=== PATIENT | female | born 1945 | race Caucasian/White ===

== ENCOUNTER 2019-03-08 18:07 | Observation (INO) ==
[2019-03-08] MEDS ORDERED: DILTIAZEM HCL 5 MG/ML VIAL IV ONE (18:21)
--- NOTE | 2019-03-08 18:28 | ERNOTE ---
Dizziness ER Record Date of Service: 03/08/19 Presenting Symptoms: weakness Time Seen by Provider: 03/08/19 18:20 Source: patient Exam Limitations: no limitations Immunizations: IMMUNIZATION HX Immunizations Up to Date Yes Allergies/Adverse Reactions: Allergies Allergy/AdvReac Type Severity Reaction Status Date / Time simvastatin [From Zocor] Allergy Intermediate vomitting Verified 03/08/19 18:16 cefaclor [From Ceclor] Allergy Mild RASH Verified 03/08/19 18:16 gemfibrozil [From Lopid] AdvReac Mild Diarrhea Verified 03/08/19 18:16 Home Medications: HOME MEDICATIONS Aspirin [Aspirin Enteric Coated] 325 mg PO DAILY 01/20/18 [Last Taken Unknown] Biotin 5 mg PO DAILY 01/20/18 [Last Taken Unknown] Calcium Carbonate/Vitamin D3 [Calcium 600-Vit D3 400 Tablet] 1 ea PO DAILY 01/20/18 [Last Taken Unknown] ascorbic acid (vitamin C) 500 mg capsule 500 mg PO DAILY cap 04/19/18 [Last Taken Unknown] garlic 500 mg capsule 500 mg PO DAILY 04/19/18 [Last Taken Unknown] glucosamine-chondroitin 250 mg-200 mg tablet 1 tab PO DAILY tab 04/19/18 [Last Taken Unknown] vitamin E (dl, acetate) 400 unit capsule 400 unit PO DAILY 04/19/18 [Last Taken Unknown] metformin 850 mg tablet 850 mg PO BIDWM #60 tab 10/03/18 [Last Taken Unknown] cimetidine 200 mg tablet 200 mg PO BID tab 10/07/18 [Last Taken Unknown] clonidine HCl 0.2 mg tablet 0.2 mg PO DAILY #30 tab 11/11/18 [Last Taken Unknown] glipizide ER 10 mg tablet, extended release 24 hr 10 mg PO BID #60 tab 11/11/18 [Last Taken Unknown] blood sugar diagnostic strips See Dose Instructions .ROUTE .MEDSUPPLY #100 ea 11/28/18 [Last Taken Unknown] metoprolol succinate ER 50 mg tablet,extended release 24 hr 50 mg PO DAILY #30 tab 11/28/18 [Last Taken Unknown] quinapril 40 mg tablet 40 mg PO DAILY #90 tab 12/21/18 [Last Taken Unknown] simvastatin 20 mg tablet 20 mg PO HS #90 tab 12/21/18 [Last Taken Unknown] sucralfate 1 gram tablet 1 g PO Q6H #120 tab 01/02/19 [Last Taken Unknown] - History of Present Illness Narrative: patient presents to the ED for feeling weak, high BP and heart rate. She had recent bypass surgery. She denies acute CP or SOB. No fever. Today she was feeling increasingly weak and noted high BP and elevated heart rate. She has a history of A Fib by report but she is not sure if she is in it all the time or not. 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 Heart rate 135 when I am in the room. Timing and Duration: still present Severity: currently: moderate Associated Symptoms: Present: weakness, none - no focal weakness, generalized weakness noted.. Absent: vomiting Modifying Factors - (Improves): Reports: nothing Modifying Factors - (Worsens): Reports: nothing Prior Treament: Reports: recently seen. Denies: currently on antibiotics Review of Systems - Review of Systems Constitutional: Absent: fever EYE: Present: no symptoms reported ENT: Absent: sore throat Respiratory: Absent: shortness of breath Cardiology: Absent: chest pain Gastrointestinal/Abdominal: Absent: abdominal pain Genitourinary: Absent: dysuria Neurological: Absent: headache All Other Systems: All systems neg except as marked Medical History (Updated 03/08/19 @ 18:28 by Manfred Díaz MD) Diabetes mellitus type 2 in nonobese Onset Date: Unknown Hyperlipidemia Onset Date: Unknown Hypertension Onset Date: Unknown Surgical History: Surgical History (Updated 03/08/19 @ 18:17 by Tanesha Medina RN) History of open heart surgery Onset Date: 02/07/19 History of tonsillectomy Onset Date: Unknown Family History: Family History (Updated 04/19/18 @ 12:59 by Luda Mccormick CMA) Father Myocardial infarction Mother Cancer breast Heart disease Social History: Preferred Language Romansh Smoking Status Never smoker Abuse History No History of abuse Psych History No pertinent hx Alcohol Use none Drug Use none (Last Updated 12/22/18 @ 16:47 by Maia Shrestha MD) No Social History Section defined Physical Exam - Physical Exam General Appearance: Present: alert, no apparent distress Head Exam: Present: normal inspection, no evidence of injury Eye Exam: Normal inspection: bilateral, PERRL: bilateral Ears, Nose, Throat: Present: normal ENT inspection Neck: Present: normal inspection Respiratory: Present: no respiratory distress, normal breath sounds, no accessory muscle use, lungs clear Cardiovascular/Chest: Present: normal peripheral pulses, tachycardia, irregularly irregular, other - scar healing from her open heart surgery Gastrointestinal/Abdominal: Present: normal bowel sounds, nontender, soft Back Exam: Absent: CVA tenderness (R), CVA tenderness (L) Extremity Exam: Present: other - Post op healing noted, no appearent acute compl icaiton Neurological Exam: Present: alert, other - no acute unilateral focal motor or sensory deficits Skin Exam: Present: normal color, warm/dry Progress - Results and Orders Patient's Lab Results:: I have reviewed the patient's lab results. - Vital Signs Patient's Vital Signs:: I have reviewed the patient's vital signs. Vital Signs: Vital Signs 03/08/19 18:14 Temperature 36.0 C Pulse Rate 119 H Respiratory Rate 13 Blood Pressure 171/83 H O2 Sat by Pulse Oximetry 98 - EKG EKG #1 EKG: NSR EKG read: Interp. by me EKG Comments: A fib RVR rate 109. Non-specific ST/T wave changes, no STEMI noted. - X-Ray X-Ray #1 X-Ray: chest Interpretation: Interp. by me X-ray Comments: No real time radiology reads, left low lobe haziness, nonspecific - (she has no pneumonia symptoms) - Progress/Reassessment Chief Complaint: Dizziness Progress Note-Subjective: 03/08/19 19:38 The patient had HR in the 129-135 range when I saw her, she really seemed to bounce around with her HR. She was given IV cardizem and this brought her heart rate doesI started to the 100 range but she would quickly bounce up to the 120 range with any kind of exertion, even sitting on the edge of the bed. Given this I started her on a cardizem drip. When this was started she was going 115 BPM after using the bathroom. At 5mg/hr dr she was hanging out at around 100 for a heart rate so this may need to be increased. I spoke with Dr Velez wo will admit and the patient was agreeable. Given the fact she was jumping up quickly with any exertion and was symptomatic with this I felt a drip was most appropriate in the short term. Patient agreeable. Departure Clinical Impression: Atrial fibrillation with RVR, Symptomatic tachycardia, Elevated serum creatinine - Departure Disposition: Still a patient Condition: Stable Referrals: Maia Shrestha MD [Primary Care Provider] -
[2019-03-08 18:35] LABS: Mean Cell Volume 91.7 fl (78-100); Mean Corpuscular Hemoglobin 27.8 pg (27-31); Mean Corpuscular Hgb Conc 30.3 g/dl (32-36); Mean Platelet Volume 10.9 fl (8-12.5); Neutrophil # 5.8 K/mm3 (1.3-6.0); Neutrophil % 70.8 % (42-75.0); Platelet Count 260 K/mm3 (150-450); Red Cell Distribution Width 15.9 % (11.5-14.0); White Blood Count 8.1 K/mm3 (4.0-10.5)
[2019-03-08] MEDS ORDERED: DILTIAZEM HCL 125 MG in DEXTROSE 5 % IN WATER 100 ML IV PRN ×2 (18:49)
[2019-03-08 18:57] LABS: Albumin * 3.6 gm/dl (3.4-5.0); Anion Gap 15.4 mmol/L (6.8-13.8); BUN/Creatinine Ratio 10.8 (9.0-21.6); Bilirubin, Total 0.3 mg/dL (0.0-1.1); Carbon Dioxide 24.9 mmol/L (24-32.6); Potassium 4.3 mmol/L (3.4-4.6); TSH * 3.408 uIU/mL (0.358-3.74); Total Protein 7.6 gm/dL (6.2-8.2); Troponin I 0.021 ng/mL (0.00-0.10)
[2019-03-08] MEDS ORDERED: METOPROLOL SUCCINATE 50 MG TABLET.SA PO SCH (21:48)
[2019-03-08] MEDS ORDERED: SIMVASTATIN 20 MG TABLET PO SCH (21:49)
[2019-03-08] MEDS ORDERED: glipiZIDE 5 MG TAB.SR.24H PO ONE (22:15)
[2019-03-08] MEDS: APIXABAN 5 MG TABLET PO SCH (22:16)
[2019-03-08] MEDS: metFORMIN HCL 500 MG TABLET PO SCH (22:16)
[2019-03-08] MEDS: glipiZIDE 5 MG TAB.SR.24H PO SCH (22:17)
[2019-03-08] MEDS: HYDROCHLOROTHIAZIDE 25 MG TABLET PO SCH (22:17)
[2019-03-08] MEDS: LISINOPRIL 10 MG TABLET PO SCH (22:18)
--- NOTE | 2019-03-08 23:46 | HP ---
Chief Complaint - Chief Complaint Date of Service: 03/08/19 Time of Service: 23:46 Chief Complaint: Irregular heart rate History of Present Illness: Shannen is a 73 yo female with recent CABG for CAD 3 weeks ago. She was at home today when she began to notice her heart racing. She presented to the [facility] ER with palpitations, shortness of breath and was found to have atrial fibrillation with RVR. She has a known history of prior atrial fibrillation with return to normal sinus rhythm. She believes that she has recently been in a normal rhythm. Other than the recent CABG she denies any other changes and specifically yesterday was her usual routine. She denies chest pain. In the ER she was given IV diltiazem which improved her rate below 115. She was continued on diltiazem drip and is currently in the SCU. She reports currently feeling well and has no symptoms her heart rate is controlled around 80-90. Medical History (Updated 03/08/19 @ 23:46 by Parish Velez DO) Diabetes mellitus type 2 in nonobese Onset Date: Unknown Hyperlipidemia Onset Date: Unknown Hypertension Onset Date: Unknown Surgical History: Surgical History (Updated 03/22/19 @ 14:38 by Annalee Raya) History of open heart surgery Onset Date: 02/07/19 History of tonsillectomy Onset Date: Unknown Family History: Family History (Updated 04/19/18 @ 12:59 by Luda Mccormick [facility]) Father Myocardial infarction Mother Cancer breast Heart disease Social History: Patient Lives/Resources [facility] Utilized Preferred Language Slovenian Do you have any gnosticist or No cultural preference? Smoking Status Never smoker Have you smoked in the past 12 No months Abuse History No History of abuse Psych History No pertinent hx Alcohol Use none Drug Use none (Last Updated 12/22/18 @ 16:47 by Maia Shrestha MD) No Social History Section defined Review Of Systems (GEN) - Review of Systems Generalized/Overall Review: Absent: Weakness, Chills, Fever EENTM: Present: No Symptoms Reported Respiratory: Present: Shortness of Breath. Absent: Cough Cardiac: Present: Palpitations. Absent: Chest Pain, Edema, Syncope Abdominal: Absent: Nausea, Vomiting, Abdominal Pain, Constipation, Diarrhea Genitourinary: Present: No Symptoms Reported Musculoskeletal: Present: No Symptoms Reported Neurological: Present: No Symptoms Reported Skin: Present: No Symptoms Reported Immunizations: IMMUNIZATION HX Immunizations Up to Date Yes Allergies/Adverse Reactions: Allergies Allergy/AdvReac Type Severity Reaction Status Date / Time simvastatin [From Zocor] Allergy Intermediate vomitting Verified 03/21/19 10:42 cefaclor [From Ceclor] Allergy Mild RASH Verified 03/21/19 10:42 gemfibrozil [From Lopid] AdvReac Mild Diarrhea Verified 03/21/19 10:42 Home Medications: HOME MEDICATIONS Biotin 5 mg PO DAILY 01/20/18 [Last Taken Unknown] Calcium Carbonate/Vitamin D3 [Calcium 600-Vit D3 400 Tablet] 1 ea PO BID 01/20/18 [Last Taken Unknown] ascorbic acid (vitamin C) 500 mg capsule 1,000 mg PO DAILY cap 04/19/18 [Last Taken Unknown] glucosamine-chondroitin 250 mg-200 mg tablet 1,500 mg PO TID tab 04/19/18 [Last Taken Unknown] vitamin E (dl, acetate) 400 unit capsule 1,000 unit PO DAILY 04/19/18 [Last Taken Unknown] cimetidine 200 mg tablet 200 mg PO BID tab 10/07/18 [Last Taken Unknown] glipizide ER 10 mg tablet, extended release 24 hr 10 mg PO BID #60 tab 11/11/18 [Last Taken Unknown] blood sugar diagnostic strips See Dose Instructions .ROUTE .MEDSUPPLY #100 ea 11/28/18 [Last Taken Unknown] simvastatin 20 mg tablet 20 mg PO HS #90 tab 12/21/18 [Last Taken Unknown] Amiodarone HCl [Cordarone] 200 mg PO DAILY 03/08/19 [Last Taken Unknown] Apixaban [Eliquis] 5 mg PO BID 03/08/19 [Last Taken Unknown] Aspirin [Lo-Dose Aspirin EC] 81 mg PO DAILY 03/08/19 [Last Taken Unknown] Furosemide 20 mg PO DAILY 03/08/19 [Last Taken Unknown] HYDROcodone/ACETAMINOPHEN [Hydrocodone-Acetamin 5-325 mg] 1 ea PO Q4H PRN 03/08/19 [Last Taken Unknown] HYDROcodone/ACETAMINOPHEN [Hydrocodone-Acetamin 5-325 mg] 2 ea PO Q4H PRN 03/08/19 [Last Taken Unknown] Potassium Chloride [Klor-Con 10] 10 meq PO DAILY 03/08/19 [Last Taken Unknown] Sennosides/Docusate Sodium [Senna-Docusate Sodium Tablet] 1 ea PO DAILY PRN 03/08/19 [Last Taken Unknown] metFORMIN HCL [Glucophage] 500 mg PO BIDWM 03/08/19 [Last Taken Unknown] lisinopril 20 mg tablet 20 mg PO BID 03/21/19 [Last Taken Unknown] metoprolol succinate ER 50 mg tablet,extended release 24 hr 50 mg PO BID 03/21/19 [Last Taken Unknown] Amlodipine Besylate 5 mg PO DAILY 03/22/19 [Last Taken Unknown] Exam - Exam Vital Signs: Vital Signs - Last Taken Temp 36.9 C 03/08/19 21:03 Pulse 90 03/08/19 23:04 Resp 16 03/08/19 23:04 BP 119/54 03/08/19 23:04 Pulse Ox 99 03/08/19 23:04 Constitutional: Present: Alert, Oriented x3, Cooperative ENT Exam: Present: hearing grossly normal Eye Exam: bilateral eye: normal inspection Respiratory: Present: lungs clear, normal breath sounds Cardiovascular/Chest: Present: no murmur, irregularly irregular Peripheral Pulses: radial (R): 2+, radial (L): 2+ Abdomen: Present: Normal bowel sounds, soft, nontender, nondistended Extremity: Present: normal inspection Skin Exam: Present: normal color, warm/dry, no cyanosis Appearance: Present: appropriate appearance, appropriate insight Thoughts: Present: normal thought pattern, no apparent hallucination Diagnostic Studies: Abnormal Lab Results 03/08/19 03/08/19 Range/Units 18:30 18:30 RBC 3.60 L (4.2-5.4) M/mm3 Hgb 10.0 L (12.5-16.0) gm/dL Hct 33.0 L (37.0-47.0) % MCHC 30.3 L (32-36) g/dl RDW 15.9 H (11.5-14.0) % Lymphocytes % 13.3 L (20-51) % Eosinophils % 8.1 H (0.0-3.0) % Lymphocytes # 1.08 L (1.5-3.5) k/mm3 Anion Gap 15.4 H (6.8-13.8) mmol/L Creatinine 2.04 H D (0.4-1.4) mg/dL Est GFR (Non-Af Amer) 26 L D (60-130) mL/min Random Glucose 190 H (70-110) mg/dL ALT 16 L (19-67) U/L Laboratory Results WBC 8.1 K/mm3 (4.0-10.5) 03/08/19 18:30 RBC 3.60 M/mm3 (4.2-5.4) L 03/08/19 18:30 Hgb 10.0 gm/dL (12.5-16.0) L 03/08/19 18:30 Hct 33.0 % (37.0-47.0) L 03/08/19 18:30 MCV 91.7 fl (78-100) 03/08/19 18:30 MCH 27.8 pg (27-31) 03/08/19 18:30 MCHC 30.3 g/dl (32-36) L 03/08/19 18:30 RDW 15.9 % (11.5-14.0) H 03/08/19 18:30 Plt Count 260 K/mm3 (150-450) 03/08/19 18:30 MPV 10.9 fl (8-12.5) 03/08/19 18:30 Immature Gran % (Auto) 0.40 % (0.001-0.429) 03/08/19 18:30 Immature Gran # (Auto) 0.03 K/mm3 (0.000-0.0310) 03/08/19 18:30 70.8 % (42-75.0) 03/08/19 18:30 13.3 % (20-51) L 03/08/19 18:30 6.4 % (0.0-9) 03/08/19 18:30 8.1 % (0.0-3.0) H 03/08/19 18:30 1.0 % (0.0-1.0) 03/08/19 18:30 Nucleated RBC % 0.0 k/mm3 (0-1) 03/08/19 18:30 5.8 K/mm3 (1.3-6.0) 03/08/19 18:30 1.08 k/mm3 (1.5-3.5) L 03/08/19 18:30 0.5 k/mm3 (0.0-1.0) 03/08/19 18:30 0.7 k/mm3 (0.0-0.7) 03/08/19 18:30 Absolute Basophils 0.1 k/mm3 (0.0-0.1) 03/08/19 18:30 Sodium 136 mmol/L (132-142) 03/08/19 18:30 137 mmol/L (130-142) 03/08/19 18:30 Potassium 4.3 mmol/L (3.4-4.6) 03/08/19 18:30 Chloride 100 mmol/L (97-106) 03/08/19 18:30 Carbon Dioxide 24.9 mmol/L (24-32.6) 03/08/19 18:30 15.4 mmol/L (6.8-13.8) H 03/08/19 18:30 BUN 22 mg/dL (3-23) 03/08/19 18:30 2.04 mg/dL (0.4-1.4) H D 03/08/19 18:30 Est GFR (Non-Af Amer) 26 mL/min (60-130) L D 03/08/19 18:30 10.8 (9.0-21.6) 03/08/19 18:30 190 mg/dL (70-110) H 03/08/19 18:30 Calcium 9.0 mg/dL (7.9-10.9) 03/08/19 18:30 Calcium Adj for Albumin 9.0 mg/dL (8.4-10.2) 03/08/19 18:30 0.3 mg/dL (0.0-1.1) 03/08/19 18:30 AST 11 U/L (0-48) 03/08/19 18:30 ALT 16 U/L (19-67) L 03/08/19 18:30 91 U/L (50-170) 03/08/19 18:30 0.021 ng/mL (0.00-0.10) 03/08/19 18:30 7.6 gm/dL (6.2-8.2) 03/08/19 18:30 3.6 gm/dl (3.4-5.0) 03/08/19 18:30 TSH 3.408 uIU/mL (0.358-3.74) 03/08/19 18:30 Assessment/Plan - Narrative Narrative: Shannen is a 73 yo female with atrial fibrillation with RVR and a recent CABG 3 weeks ago. She has been started on diltiazem drip and is in the SCU. Will continue drip and see if she will convert to a normal sinus rhythm as she reportedly has in the past. Will give IV fluids. There is no evidence of acute cardiac injury with a normal troponin despite fairly recent CABG. Will monitor for evidence of acute [place], she is currently chest pain free. - Assessment/Plan (1) Atrial fibrillation with RVR Problem: Acute (2) Status post coronary artery bypass grafting Problem: Acute
[2019-03-09] MEDS: metFORMIN HCL 500 MG TABLET PO SCH (08:06)
[2019-03-09] MEDS: glipiZIDE 5 MG TAB.SR.24H PO SCH (08:06)
[2019-03-09] MEDS: APIXABAN 5 MG TABLET PO SCH (08:06)
[2019-03-09] MEDS: HYDROCHLOROTHIAZIDE 25 MG TABLET PO SCH (08:06)
[2019-03-09] MEDS: LISINOPRIL 10 MG TABLET PO SCH (08:06)
[2019-03-09] MEDS ORDERED: SENNOSIDES/DOCUSATE SODIUM 1 TAB TABLET PO PRN (08:30)
[2019-03-09] MEDS ORDERED: HYDROcodone/ACETAMINOPHEN 1 EACH TABLET PO PRN (08:30)
[2019-03-09] MEDS ORDERED: GLIPIZIDE 10 MG PO SCH (09:00)
[2019-03-09] MEDS ORDERED: ASCORBIC ACID 500 MG TABLET PO SCH (09:00)
[2019-03-09] MEDS ORDERED: AMIODARONE HCL 200 MG TABLET PO SCH (09:00)
[2019-03-09] MEDS ORDERED: HYDROCHLOROTHIAZIDE 25 MG TABLET PO SCH (09:00)
[2019-03-09] MEDS ORDERED: APIXABAN 5 MG TABLET PO SCH (09:00)
[2019-03-09] MEDS ORDERED: POTASSIUM CHLORIDE 10 MEQ TABLET.SA PO SCH (09:00)
[2019-03-09] MEDS ORDERED: FUROSEMIDE 20 MG TABLET PO SCH (09:00)
[2019-03-09] MEDS ORDERED: CALCIUM CARBONATE/VITAMIN D3 1 TAB TABLET PO SCH (09:00)
[2019-03-09] MEDS ORDERED: LISINOPRIL 10 MG TABLET PO SCH (09:00)
[2019-03-09] MEDS ORDERED: ASPIRIN 81 MG TABLET.DR PO SCH (09:00)
[2019-03-09 13:05] LABS: Hematocrit 32.1 % (37.0-47.0); Hemoglobin 9.6 gm/dL (12.5-16.0); Mean Cell Volume 91.7 fl (78-100); Mean Corpuscular Hemoglobin 27.4 pg (27-31); Mean Corpuscular Hgb Conc 29.9 g/dl (32-36); Mean Platelet Volume 11.1 fl (8-12.5); Neutrophil # 5.2 K/mm3 (1.3-6.0); Neutrophil % 70.7 % (42-75.0); Platelet Count 301 K/mm3 (150-450); Red Cell Distribution Width 16.1 % (11.5-14.0); White Blood Count 7.4 K/mm3 (4.0-10.5)
[2019-03-09 13:24] LABS: Albumin * 3.6 gm/dl (3.4-5.0); Anion Gap 15.5 mmol/L (6.8-13.8); BUN/Creatinine Ratio 16.5 (9.0-21.6); Bilirubin, Total 0.3 mg/dL (0.0-1.1); Ca. Corrected For Albumin 9.4 mg/dL (8.4-10.2); Calcium * 9.4 mg/dL (7.9-10.9); Carbon Dioxide 26.1 mmol/L (24-32.6); Potassium 4.6 mmol/L (3.4-4.6); Total Protein 7.8 gm/dL (6.2-8.2); Troponin I 0.02 ng/mL (0.00-0.10)
--- NOTE | 2019-03-09 16:25 | DS ---
(1) Atrial fibrillation with RVR Problem: Acute Description of Stay: Shannen is a 73 yo female admitted with atrial fibrillation with RVR. She had CABG about 3 weeks ago. She reports a prior history of atrial fibrillation episodes with RVR. She was admitted and placed on diltiazem drip. Troponin was checked but was not elevated. There was no evidence of acute PA. Rate was controlled with diltiazem overnight and in the morning she converted to a sinus rhythm. The drip was discontinued after restarting her oral medications and then she was monitored for several hours. She did not have any reoccurrence of atrial fibrillation and felt well. She will be discharged to home. I will not make any changes in her medications at this time. Procedures Performed: none Results and Findings: Lab Pending Results 03/08/19 18:30: WBC 8.1, RBC 3.60 L, Hgb 10.0 L, Hct 33.0 L, MCV 91.7, MCH 27.8, MCHC 30.3 L, RDW 15.9 H, Plt Count 260, MPV 10.9, Immature Gran % (Auto) 0.40, Immature Gran # (Auto) 0.03, Neutrophils % 70.8, Lymphocytes % 13.3 L, Monocytes % 6.4, Eosinophils % 8.1 H, Basophils % 1.0, Nucleated RBC % 0.0, Neutrophils # 5.8, Lymphocytes # 1.08 L, Monocytes # 0.5, Eosinophils # 0.7, Absolute Basophils 0.1 03/08/19 18:30: Sodium 136, Plasma Sodium 137, Potassium 4.3, Chloride 100, Carbon Dioxide 24.9, Anion Gap 15.4 H, BUN 22, Creatinine 2.04 H D, Est GFR (Non-Af Amer) 26 L D, BUN/Creatinine Ratio 10.8, Random Glucose 190 H, Calcium 9.0, Calcium Adj for Albumin 9.0, Total Bilirubin 0.3, AST 11, ALT 16 L, Alkaline Phosphatase 91, Troponin I 0.021, Total Protein 7.6, Albumin 3.6, TSH 3.408 03/09/19 13:01: WBC 7.4, RBC 3.50 L, Hgb 9.6 L, Hct 32.1 L, MCV 91.7, MCH 27.4, MCHC 29.9 L, RDW 16.1 H, Plt Count 301, MPV 11.1, Immature Gran % (Auto) 0.40, Immature Gran # (Auto) 0.03, Neutrophils % 70.7, Lymphocytes % 11.9 L, Monocytes % 6.2, Eosinophils % 9.6 H, Basophils % 1.2 H, Nucleated RBC % 0.0, Neutrophils # 5.2, Lymphocytes # 0.88 L, Monocytes # 0.5, Eosinophils # 0.7, Absolute Basophils 0.1 03/09/19 13:01: Sodium 135, Plasma Sodium 136, Potassium 4.6, Chloride 98, Carbon Dioxide 26.1, Anion Gap 15.5 H, BUN 23, Creatinine 1.39 D, Est GFR (Non- Af Amer) 40 L D, BUN/Creatinine Ratio 16.5, Random Glucose 183 H, Calcium 9.4, Calcium Adj for Albumin 9.4, Total Bilirubin 0.3, AST 9, ALT 16 L, Alkaline Phosphatase 85, Troponin I 0.020, Total Protein 7.8, Albumin 3.6 Discharge Location: Home Disposition: Home self-care Condition: Good Discharge Activity: Activity as tolerated Discharge Diet: Low salt Referrals: Maia Shrestha MD [Primary Care Provider] - One Week Problem Oriented Discharge Instructions to Patient/Family: Atrial Fibrillation, [id number]-Smwn Additional Patient Instructions (free text): -Please make TCM appointment unless custodial discharge. Thank you! Paola @ ext:[phone]. Complete Home Medications List: Complete Home Medication List: Biotin 5 mg PO DAILY 01/20/18 Calcium Carbonate/Vitamin D3 [Calcium 600-Vit D3 400 Tablet] 1 ea PO BID 01/20/18 ascorbic acid (vitamin C) 500 mg capsule 1,000 mg PO DAILY cap 04/19/18 glucosamine-chondroitin 250 mg-200 mg tablet 1,500 mg PO TID tab 04/19/18 vitamin E (dl, acetate) 400 unit capsule 1,000 unit PO DAILY 04/19/18 cimetidine 200 mg tablet 200 mg PO BID tab 10/07/18 glipizide ER 10 mg tablet, extended release 24 hr 10 mg PO BID #60 tab 11/11/18 blood sugar diagnostic strips See Dose Instructions .ROUTE .MEDSUPPLY #100 ea 11/28/18 simvastatin 20 mg tablet 20 mg PO HS #90 tab 12/21/18 Amiodarone HCl [Cordarone] 200 mg PO DAILY 03/08/19 Apixaban [Eliquis] 5 mg PO BID 03/08/19 Aspirin [Lo-Dose Aspirin EC] 81 mg PO DAILY 03/08/19 Furosemide 20 mg PO DAILY 03/08/19 HYDROcodone/ACETAMINOPHEN [Hydrocodone-Acetamin 5-325 mg] 1 ea PO Q4H PRN 03/08/19 HYDROcodone/ACETAMINOPHEN [Hydrocodone-Acetamin 5-325 mg] 2 ea PO Q4H PRN 03/08/19 Hydrochlorothiazide [Hydrodiuril] 25 mg PO BID 03/08/19 Lisinopril [Zestril] 10 mg PO BID 03/08/19 Metoprolol Succinate [Toprol Xl] 50 mg PO HS 03/08/19 Potassium Chloride [Klor-Con 10] 10 meq PO DAILY 03/08/19 Sennosides/Docusate Sodium [Senna-Docusate Sodium Tablet] 1 ea PO DAILY PRN 03/08/19 metFORMIN HCL [Glucophage] 500 mg PO BIDWM 03/08/19
[2019-03-09 17:23] VITALS: BP 152/66
[2019-03-09] MEDS ORDERED: METOPROLOL SUCCINATE 50 MG TABLET.SA PO SCH (21:00)
[2019-03-09] MEDS ORDERED: SIMVASTATIN 20 MG TABLET PO SCH (21:00)
== END 2019-03-09 17:00 | disposition home or self-care (01) ==
LOC: SCU 18:07 → ER 18:07 → SCU 20:50
PROVIDERS: ADMIT Family Medicine; ATTEND Family Medicine
DX: I48.91 Unspecified atrial fibrillation; R07.89 Other chest pain
CPT/HCPCS: 36415; 71020; 71046; 80053; 84443; 84484; 85025; 93005; 96365; 96366; 96375; 99285; G0378